=== PATIENT | female | born 1980 | race African-American/Black ===

== ENCOUNTER 2017-02-18 03:56 | Emergency (ER) | payer SELFPAY ==
[2017-02-18] MEDS ORDERED: NORMAL SALINE 1000 ML 1,000 ML IV ONE ×2 (06:05→06:24)
[2017-02-18] MEDS ORDERED: ONDANSETRON HCL INJ/PF 4 MG/2 ML SDV IV ONE (06:24)
[2017-02-18] MEDS ORDERED: PROCHLORPERAZINE EDISYLATE INJ 10 MG/2 ML VIAL IV ONE (06:24)
[2017-02-18 06:31] LABS: ABSOLUTE EOSINOPHILS # (AUTO) 0.1 10^3/uL (0.0-0.6); ABSOLUTE LYMPHOCYTES (AUTO) 1.4 10^3/uL (0.5-4.7); ABSOLUTE MONOCYTES (AUTO) 0.5 10^3/uL (0.1-1.4); ABSOLUTE NEUT (AUTO) 4.7 10^3/uL (1.7-8.2); BASOPHILS % (AUTO) 0.4 % (0-2); EOSINOPHILS % (AUTO) 0.8 % (0-6); HEMATOCRIT 41.6 % (36.0-47.0); HGB HCT DIFFERENCE 0.4; LYMPHOCYTES % (AUTO) 20.7 % (13-45); MEAN CORPUSCULAR HEMOGLOBIN 29.7 pg (27.0-33.4); MEAN CORPUSCULAR HGB CONC 33.6 g/dL (32.0-36.0); MEAN CORPUSCULAR VOLUME 88 fl (80-97); MONOCYTES % (AUTO) 7.1 % (3-13); RED BLOOD COUNT 4.71 10^6/uL (3.72-5.28); WHITE BLOOD COUNT 6.6 10^3/uL (4.0-10.5)
[2017-02-18 06:46] LABS: ALANINE AMINOTRANSFERASE 24 U/L (9-52); ALBUMIN 4.5 g/dL (3.5-5.0); ALCOHOL < 10 mg/dL (NONE DETECTED); ALKALINE PHOSPHATASE 68 U/L (38-126); ANION GAP 12 (5-19); ASPARTATE AMINO TRANSFERASE 16 U/L (14-36); BILIRUBIN,DIRECT 0.3 mg/dL (0.0-0.4); BILIRUBIN,TOTAL 0.6 mg/dL (0.2-1.3); BLOOD UREA NITROGEN 13 mg/dL (7-20); CALCIUM 9.8 mg/dL (8.4-10.2); CARBON DIOXIDE 25 mmol/L (22-30); CHLORIDE 107 mmol/L (98-107); CREATININE RESULT 0.81 mg/dL (0.52-1.25); GLUCOSE 153 mg/dL (75-110); POTASSIUM 4.5 mmol/L (3.6-5.0); SODIUM 144.1 mmol/L (137-145); TOTAL PROTEIN 7.7 g/dL (6.3-8.2)
[2017-02-18 06:48] LABS: PROTHROMBIN TIME 12.7 SEC (11.4-15.4)
[2017-02-18 06:49] LABS: PARTIAL THROMBOPLASTIN TIME 24.4 SEC (23.5-35.8)
[2017-02-18 08:50] LABS: URINE BARBITURATES SCREEN NEGATIVE; URINE METHADONE SCREEN NEGATIVE; URINE OPIATES LOW NEGATIVE; URINE PHENCYCLIDINE SCREEN NEGATIVE
[2017-02-18 09:08] LABS: APPEARANCE,URINE CLEAR; BILIRUBIN,URINE NEGATIVE (NEGATIVE); GLUCOSE, URINE NEGATIVE (NEGATIVE); KETONES,URINE NEGATIVE (NEGATIVE); LEUKOCYTE ESTERASE,URINE NEGATIVE (NEGATIVE); NITRITE,URINE NEGATIVE (NEGATIVE); PROTEIN,URINE NEGATIVE (NEGATIVE); UROBILINOGEN,URINE NEGATIVE mg/dL (<2.0)
--- NOTE | 2017-02-18 10:12 | ER Document Report ---
ED General - General Chief Complaint: Headache Stated Complaint: HEADACHE,VOMITING BLOOD TRAVEL OUTSIDE OF THE [place] IN LAST 30 DAYS: No - HPI Patient complains to provider of: headache nausea vomiting Notes: Patient coming in for evaluation of nausea vomiting and headache. Patient states has a history of migraines headache similar to headaches in the past. Patient also states less than she still had streaks of blood. Otherwise patient denies any alcohol abuse or use. Denies any abdominal pain. Patient is resting currently upon my evaluation. Denies any recent antibiotics travel. - Related Data Allergies/Adverse Reactions: No Known Allergies Allergy (Unverified 09/18/15 10:50) Past Medical History - Social History Smoking Status: Current Every Day Smoker Chew tobacco use (# tins/day): No Frequency of alcohol use: None Drug Abuse: None Family History: Reviewed & Not Pertinent Patient has suicidal ideation: No Patient has homicidal ideation: Yes - Past Medical History Cardiac Medical History: Denies: Hx Coronary Artery Disease, Hx Heart Attack, Hx Hypertension Pulmonary Medical History: Denies: Hx Asthma, Hx Bronchitis, Hx COPD, Hx Pneumonia Neurological Medical History: Reports: Hx Migraine. Denies: Hx Cerebrovascular Accident, Hx Seizures Renal/ Medical History: Denies: Hx Peritoneal Dialysis Musculoskeltal Medical History: Denies Hx Arthritis Past Surgical History: Reports: Hx Gynecologic Surgery - ginny ovarian tube removal - Immunizations Hx Diphtheria, Pertussis, Tetanus Vaccination: Yes - 12/11 Review of Systems - Review of Systems Constitutional: No symptoms reported EENT: No symptoms reported Cardiovascular: No symptoms reported Respiratory: No symptoms reported Gastrointestinal: Abdominal pain, Nausea Genitourinary: No symptoms reported Female Genitourinary: No symptoms reported Musculoskeletal: No symptoms reported Skin: No symptoms reported Hematologic/Lymphatic: No symptoms reported Neurological/Psychological: No symptoms reported -: Yes All other systems reviewed and negative Physical Exam - Vital signs Vitals: Temp Pulse Resp BP Pulse Ox 97.7 F 103 H 18 129/83 H 98 02/18/17 04:05 02/18/17 04:05 02/18/17 04:05 02/18/17 04:05 02/18/17 04:05 Interpretation: Normal - General General appearance: Appears well, Alert - HEENT Head: Normocephalic, Atraumatic Eyes: Normal Pupils: PERRL - Respiratory Respiratory status: No respiratory distress Chest status: Nontender Breath sounds: Normal Chest palpation: Normal - Cardiovascular Rhythm: Regular Heart sounds: Normal auscultation Murmur: No - Abdominal Inspection: Normal Distension: No distension Bowel sounds: Normal Tenderness: Nontender Organomegaly: No organomegaly - Back Back: Normal, Nontender - Extremities General upper extremity: Normal inspection, Nontender, Normal color, Normal ROM , Normal temperature General lower extremity: Normal inspection, Nontender, Normal color, Normal ROM , Normal temperature, Normal weight bearing. No: Nelson's sign - Neurological Neuro grossly intact: Yes Cognition: Normal Orientation: AAOx4 Js Coma Scale Eye Opening: Spontaneous Js Coma Scale Verbal: Oriented Js Coma Scale Motor: Obeys Commands Js Coma Scale Total: 15 Speech: Normal Motor strength normal: LUE, RUE, LLE, RLE Sensory: Normal - Psychological Associated symptoms: Normal affect, Normal mood - Skin Skin Temperature: Warm Skin Moisture: Dry Skin Color: Normal Course - Re-evaluation Re-evalutation: 02/18/17 15:09 The patient presents withn/v without signs of peritonitis or other life- threatening or serious etiology. The patient appears stable for discharge and has been instructed to return immediately if the symptoms worsen in any way, or in 8-12hr if not improved for re-evaluation. The patient has been instructed to return if the symptoms worsen or change in any way 02/18/17 15:09 The patient presents with headache without signs of [employer] bleed, stroke, infection , or other serious etiology. The patient is neurologically intact. Given the extremely low risk of these diagnoses further testing and evaluation for these possibilities does not appear to be indicated at this time. The patient has been instructed to return if the symptoms worsen or change in any way.. - Vital Signs Vital signs: Temp Pulse Resp BP Pulse Ox 98.7 F 64 16 113/67 98 02/18/17 11:06 02/18/17 11:06 02/18/17 09:36 02/18/17 11:06 02/18/17 11:06 - Laboratory Result Diagrams: 02/18/17 06:18 02/18/17 06:18 Laboratory results interpreted by me: 02/18/17 06:18 Glucose 153 H Discharge - Discharge Clinical Impression: Frontal headache Nausea & vomiting Qualifiers: Vomiting type: vomiting of fecal matter Qualified Code(s): R11.13 - Vomiting of fecal matter Condition: Good Disposition: HOME, SELF-CARE Instructions: Vomiting ([facility]), Headache ([facility]) Additional Instructions: Please take medication as prescribed. Return to ER if symptoms worsen. Prescriptions: Promethazine HCl [Phenergan 25 mg Tablet] 25 - 50 mg PO ASDIR PRN #30 tablet PRN Reason: Forms: Return to Work
[2017-02-18 11:25] VITALS: BP 113/67
== END 2017-02-18 11:09 | disposition home or self-care (01) ==
LOC: ER 03:56
DX: R51 Headache (principal); R11.2 Nausea with vomiting, unspecified; F17.200 Nicotine dependence, unspecified, uncomplicated
CPT/HCPCS: 99284; 96361; 96374; 96375; 36415; 80307 ×2; 84703; 85025; 85610; 85730; 80053; 81001; J0780; J2405; J7030

== ENCOUNTER 2020-07-13 08:05 | Emergency (ER) | payer OTHER ==
[2020-07-13] MEDS ORDERED: ACETAMINOPHEN 325 MG TABLET PO ONE (08:45)
--- NOTE | 2020-07-13 08:54 | ER Document Report ---
HPI - HPI Patient complains to provider of: Upper back pain Time Seen by Provider: 07/13/20 08:13 Onset: This morning Onset/Duration: Persistent Quality of pain: Achy Pain Level: 5 Context: Patient presents complaining of upper back pain. Patient denies any cough or cold symptoms. Patient states pain is worse with deep inspiration. Associated Symptoms: denies: Nonproductive cough, Productive cough, Fever, Nausea Exacerbated by: Movement, Deep breathing Relieved by: Denies Similar symptoms previously: No Recently seen / treated by doctor: No - ROS ROS below otherwise negative: Yes Systems Reviewed and Negative: Yes All other systems reviewed and negative - CONSTITUTIONAL Constitutional: DENIES: Fever, Chills - CARDIOVASCULAR Cardiovascular: DENIES: Chest pain - RESPIRATORY Respiratory: DENIES: Trouble Breathing, Coughing - GASTROINTESTINAL Gastrointestinal: DENIES: Nausea - MUSCULOSKELETAL Musculoskeletal: REPORTS: Back Pain - DERM Skin Color: Normal Skin Problems: None Past Medical History - General Information source: Patient - Social History Smoking Status: Current Every Day Smoker Frequency of alcohol use: None Drug Abuse: None Occupation: Housekeeping Family History: Reviewed & Not Pertinent - Past Medical History Cardiac Medical History: Denies: Hx Coronary Artery Disease, Hx Heart Attack, Hx Hypertension Neurological Medical History: Reports: Hx Migraine. Denies: Hx Cerebrovascular Accident, Hx Seizures Renal/ Medical History: Denies: Hx Peritoneal Dialysis Musculoskeletal Medical History: Denies Hx Arthritis Past Surgical History: Reports: Hx Gynecologic Surgery - ginny ovarian tube removal, Hx Hysterectomy - Immunizations Hx Diphtheria, Pertussis, Tetanus Vaccination: Yes - 12/11 Vertical Provider Document - CONSTITUTIONAL Agree With Documented VS: Yes Exam Limitations: No Limitations General Appearance: WD/WN, No Apparent Distress - INFECTION CONTROL TRAVEL OUTSIDE OF THE [place] IN LAST 30 DAYS: No - HEENT HEENT: Atraumatic, Normocephalic - NECK Neck: Normal Inspection, Supple. negative: Lymphadenopathy-Left, Lymphadenopathy-Right - RESPIRATORY Respiratory: Breath Sounds Normal, No Respiratory Distress, Chest Non-Tender - CARDIOVASCULAR Cardiovascular: Regular Rate, Regular Rhythm, No Murmur - GI/ABDOMEN Gastrointestinal: Abdomen Soft, Abdomen Non-Tender - BACK Back: Abnormal Inspection - Upper thoracic back tenderness bilaterally, no midline tenderness, tenderness increases with deep inspiration, palpation or rotational movement of the trunk. negative: CVA Tenderness-Right, CVA Tenderness-Left - MUSCULOSKELETAL/EXTREMETIES Musculoskeletal/Extremeties: ALHAJI, STACY, Non-Tender - NEURO Level of Consciousness: Awake, Alert, Appropriate Motor/Sensory: No Motor Deficit, No Sensory Deficit - DERM Integumentary: Warm, Dry, No Rash Course - Re-evaluation Re-evalutation: 07/13/20 10:08 Patient with reproducible musculoskeletal back pain. No chest pain, shortness of breath lightheadedness or dizziness. Patient with stable vital signs. No acute findings on chest x-ray. - Vital Signs Vital signs: Temp Pulse Resp BP Pulse Ox 97.9 F 76 18 111/69 100 07/13/20 08:12 07/13/20 08:12 07/13/20 08:12 07/13/20 08:12 07/13/20 08:12 - Diagnostic Test Radiology reviewed: Reports reviewed - EKG Interpretation by Me EKG shows normal: Sinus rhythm Rate: Normal When compared to previous EKG there are: Previous EKG unavailable Additional EKG results interpreted by me: 07/13/20 09:37 Sinus rhythm with a rate of 80, QTc 430, no acute ischemic changes Discharge - Discharge Clinical Impression: Upper back pain Condition: Stable Disposition: HOME, SELF-CARE Instructions: Muscle Strain ([facility]), Upper Back Strain ([facility]), Warm Packs ([facility]) Additional Instructions: Return immediately for any new or worsening symptoms: Worsening pain, cough, shortness of breath, any concerning new or worsening symptoms Followup with your primary care provider, call tomorrow to make a followup appointment Prescriptions: Lidocaine [Lidoderm 5% (700 mg) Transdermal Patch] 1 patch TP DAILY PRN #10 adh..patch PRN Reason: Naproxen [Naprosyn 250 Nmg Tablet] 1 tab PO BID #14 tablet Methocarbamol [Robaxin 500 Mg Tablet] 500 mg PO QID PRN #24 tablet PRN Reason: Forms: Return to Work Referrals: [facility] [Provider Group] - Follow up as needed
--- NOTE | 2020-07-13 09:40 | RADIOLOGY REPORT (SQ) ---
EXAM DESCRIPTION: CHEST SINGLE VIEW IMAGES COMPLETED DATE/TIME: 07/13/2020 9:31 am REASON FOR STUDY: upper back pain COMPARISON: None. NUMBER OF VIEWS: One view. TECHNIQUE: Single frontal radiographic view of the chest acquired. LIMITATIONS: None. FINDINGS: LUNGS AND PLEURA: No opacities, masses or pneumothorax. No pleural effusion. MEDIASTINUM AND HILAR STRUCTURES: No masses. Contour normal. HEART AND VASCULAR STRUCTURES: Heart normal in size. Normal vasculature. BONES: No acute findings. HARDWARE: None in the chest. OTHER: No other significant finding. IMPRESSION: NO SIGNIFICANT RADIOGRAPHIC FINDING IN THE CHEST. TECHNICAL DOCUMENTATION: JOB ID: [id number] 2010 [employer]- All Rights Reserved Reading location - IP/workstation name: [email or web address]
[2020-07-13 11:11] VITALS: BP 107/65
--- NOTE | 2020-07-13 21:27 | EKG REPORT ---
SEVERITY:- NORMAL ECG - SINUS RHYTHM : Confirmed by: Jimmy Li 13-Jul-2020 21:27:01
== END 2020-07-13 11:11 | disposition home or self-care (01) ==
LOC: ER 08:05
DX: M54.9 Dorsalgia, unspecified (principal); F17.200 Nicotine dependence, unspecified, uncomplicated
CPT/HCPCS: 71045; 93005; 93010; 99284

== ENCOUNTER 2020-09-21 06:09 | Emergency (ER) | payer OTHER ==
[2020-09-21] MEDS ORDERED: ACETAMINOPHEN 325 MG TABLET PO ONE (08:23)
[2020-09-21] MEDS ORDERED: ONDANSETRON 4 MG TAB.RAPDIS PO ONE (08:23)
[2020-09-21] MEDS ORDERED: BENZONATATE 100 MG CAPSULE PO ONE (08:23)
[2020-09-21] MEDS ORDERED: CETIRIZINE 10 MG TABLET PO ONE (08:23)
--- NOTE | 2020-09-21 08:25 | ER Document Report ---
HPI - HPI Time Seen by Provider: 09/21/20 08:02 Pain Level: 4 Context: Patient is a 40-year-old female who presents emergency department with a chief complaint of flulike symptoms. Patient states that she has had a dry cough for the past few days. States that she has had chills. She started to have diarrhea this morning. She has not received her flu vaccine this year. Denies any contact with anybody who has tested positive for COVID-19, [place]. Denies any fever. Denies any vomiting, but admits to some nausea. Patient's states that she has lost her taste and has only been eating crackers. - CONSTITUTIONAL Constitutional: REPORTS: Chills. DENIES: Fever - NEURO Neurology: REPORTS: Headache - RESPIRATORY Respiratory: REPORTS: Coughing - REPRODUCTIVE LMP: last week Reproductive: DENIES: : Past Medical History - Social History Smoking Status: Current Some Day Smoker Family History: Reviewed & Not Pertinent - Past Medical History Cardiac Medical History: Denies: Hx Coronary Artery Disease, Hx Heart Attack, Hx Hypertension Pulmonary Medical History: Denies: Hx Asthma, Hx Bronchitis, Hx COPD, Hx Pneumonia Neurological Medical History: Reports: Hx Migraine. Denies: Hx Cerebrovascular Accident, Hx Seizures Renal/ Medical History: Denies: Hx Peritoneal Dialysis Musculoskeletal Medical History: Denies Hx Arthritis Past Surgical History: Reports: Hx Gynecologic Surgery - ginny ovarian tube removal, Hx Hysterectomy - Immunizations Hx Diphtheria, Pertussis, Tetanus Vaccination: Yes - 12/11 Vertical Provider Document - CONSTITUTIONAL Agree With Documented VS: Yes Exam Limitations: No Limitations General Appearance: No Apparent Distress - INFECTION CONTROL TRAVEL OUTSIDE OF THE [place] IN LAST 30 DAYS: No - HEENT HEENT: Atraumatic, Normocephalic, PERRLA, Pharyngeal Tenderness, Pharyngeal Erythema. negative: Conjuctival Injection, Pharyngeal Exudate, Tympanic Membrane Red, Tympanic Membrane Bulging Notes: Edema and erythema needed to nasal mucosa; slightly erythematous oropharynx - NECK Neck: Normal Inspection - RESPIRATORY Respiratory: Breath Sounds Normal, No Respiratory Distress - CARDIOVASCULAR Cardiovascular: Regular Rhythm, Tachycardia Pulses: Normal: Radial - GI/ABDOMEN Gastrointestinal: Abdomen Soft, Abdomen Non-Tender - MUSCULOSKELETAL/EXTREMETIES Musculoskeletal/Extremeties: FROM - NEURO Level of Consciousness: Awake, Alert, Appropriate Motor/Sensory: No Motor Deficit, No Sensory Deficit - DERM Integumentary: Warm, Dry, No Rash Course - Re-evaluation Re-evalutation: 09/21/20 08:54 Rapid strep and flu tests are negative. Throat culture was sent. The patient was evaluated during the global COVID-19 pandemic and that diagnosis was suspected/considered upon their initial presentation. Their evaluation, treatment and testing was consistent with current guidelines for patients who present with complaints or symptoms that may be related to COVID-19. Follow-up precautions were given. Verbal discharge instructions were given to the patient. They verbalized understanding. They are stable for discharge. - Vital Signs Vital signs: Temp Pulse Resp BP Pulse Ox 98.9 F 108 H 19 122/70 99 09/21/20 06:23 09/21/20 06:23 09/21/20 06:23 09/21/20 06:23 09/21/20 06:23 Discharge - Discharge Clinical Impression: Body aches, Chills, Suspected COVID-19 virus infection, Cough Diarrhea Qualifiers: Diarrhea type: unspecified type Qualified Code(s): R19.7 - Diarrhea, unspecified Condition: Stable Disposition: HOME, SELF-CARE Instructions: COVID-19 Guidance for Persons Under Investigation Additional Instructions: As a person under investigation for COVID-19, the [place] Department of Health and Human Services (division on public health) advises you to adhere to the following guidance until your test results are reported to you. If your test result is positive, you will receive additional information from your provider and your local health department at that time. Remain at home until you are cleared by the health provider or public health authorities. Keep a log of visitors to your home, notify any visitors to your home of your isolation status. If you plan to move to a new address or leave the [facility], notify the local health department in your County. Call your Doctor or seek care if you have an urgent medical need. Before seeking medical care, call him to get instructions from the provider before arriving at the medical office, clinic, or hospital. Notify them that you are being tested for the virus (COVID-19) so that arrangements can be made, as necessary, to prevent transmission to others in the healthcare setting. Next, notify the local health department in your county. Take Zofran as prescribed. You can take Tessalon Perles to help with your cough. Also start cetirizine and Flonase. Continue to take [id number] Tylenol 1000 mg every 6 hours for fever or body aches. Prescriptions: Cetirizine HCl [All Day Allergy] 10 mg PO DAILY #30 tablet Fluticasone Propionate [Flonase Nasal Lyme 50 Mcg/Lyme 16 gm] 2 sprays NASL DAILY #1 inhaler Benzonatate [Tessalon Perles 100 mg Capsule] 100 mg PO Q8HP PRN #40 capsule PRN Reason: Ondansetron [Zofran Odt 4 mg Tablet] 4 mg PO Q4HP PRN #30 tab.rapdis PRN Reason:
[2020-09-21 08:35] LABS: A TYPE INFLUENZA AG NEGATIVE (NEGATIVE); B INFLUENZA AG NEGATIVE (NEGATIVE)
[2020-09-21 09:20] VITALS: BP 123/82
== END 2020-09-21 09:21 | disposition home or self-care (01) ==
LOC: ER 06:09
DX: U07.1 COVID-19 (principal); R19.7 Diarrhea, unspecified; R51.9 Headache, unspecified; R05 Cough; M79.10 Myalgia, unspecified site; R11.0 Nausea; R68.83 Chills (without fever); F17.200 Nicotine dependence, unspecified, uncomplicated
CPT/HCPCS: 99283; 87070; 87880; 87635; 87804; S0119; C9803